=== PATIENT | female | born 1995 | race Caucasian/White ===

== ENCOUNTER 2017-03-08 08:05 | Emergency (ER) | payer OTHER ==
[2016-06-18 14:21] VITALS: BMI 26.1
[~2017-03-08 08:05] MED LIST: ADDERALL 10 MG10 MG PO; CYCLOBENZAPRINE10 MG PO; HYDROCODON-ACE1 EAC7 PO
[2017-03-08 08:58] LABS: BASOPHILS 0.3 % (0.0-2.0); EOSINOPHILS 0.6 % (0-7); HEMATOCRIT 39.2 % (36.0-48.0); HEMOGLOBIN 13.6 g/dL (12-16); IMMATURE GRANULOCYTES 0.1 % (0-5); LYMPHOCYTES 23.7 % (15-50); MCH 31.1 pg (26.0-34.0); MCHC 34.7 g/dL (31.0-37.0); MCV 89.5 fL (80.0-100.0); MEAN PLATELET VOLUME 9.9 fL (7.4-10.4); MONOCYTES 10.1 % (2-11); NEUTROPHILS 65.2 % (40-80); PLATELET COUNT 223 10x3/uL (130-400); RBC 4.38 10x6/uL (4.00-5.40); RDW 11.7 % (11.5-14.5); WBC 9.2 10x3/uL (4.8-10.8)
[2017-03-08 09:18] LABS: ALBUMIN 3.8 g/dL (3.4-5.0); ALKALINE PHOSPHATASE 56 U/L (46-116); ALT (SGPT) 14 U/L (10-68); AMYLASE - SERUM 46 U/L (25-115); BILIRUBIN - TOTAL 0.49 mg/dL (0.2-1.3); CALC OSMOLALITY 272 mosm/kg (275-300); CALCIUM 9.2 mg/dL (8.5-10.1); CARBON DIOXIDE 23.7 mmol/L (21.0-32.0); CHLORIDE - SERUM 102 mmol/L (98-107); CREATININE - SERUM 0.7 mg/dL (0.6-1.3); GLUCOSE 84 mg/dL (74-106); LIPASE 92 U/L (73-393); POTASSIUM - SERUM 3.6 mmol/L (3.5-5.1); PROTEIN - SERUM 7.7 g/dL (6.4-8.2); SODIUM 138 mmol/L (136-145); UREA NITROGEN 7 mg/dL (7-18); eGFR NON AFRICAN AMERICAN > 90 mL/min (90-120)
[2017-03-08 09:44] LABS: HCG URINE POSITIVE (NEGATIVE)
[2017-03-08 10:01] LABS: APPEARANCE HAZY (CLEAR); COLOR YELLOW (YELLOW); LEUKOCYTE ESTERASE 1+ (NEGATIVE); NITRITE NEGATIVE (NEGATIVE); PROTEIN TRACE mg/dL (NEGATIVE)
[2017-03-08 10:02] LABS: BACTERIA MANY /hpf (NONE SEEN); BILIRUBIN NEGATIVE (NEGATIVE); GLUCOSE NEGATIVE (NEGATIVE); KETONE LARGE mg/dL (NEGATIVE); RED CELLS - URINE 0-5 /hpf (0-5); UROBILINOGEN NORMAL (NORMAL); WHITE CELLS - URINE 0-5 /hpf (0-5)
[2017-03-08 10:03] LABS: MUCUS <1+ /lpf (NONE SEEN)
[2017-03-08 10:06] LABS: SPERMATOZOA NONE SEEN /hpf (NONE SEEN)
== END 2017-03-08 11:19 | disposition home or self-care (01) ==
LOC: D.ER 08:05
PROVIDERS: Emergency Medicine
DX: O21.9 Vomiting of pregnancy, unspecified (principal); N39.0 Urinary tract infection, site not specified